=== PATIENT | female | born 1995 | race Caucasian/White ===

== ENCOUNTER 2024-02-05 18:30 | Emergency (ER) | payer OTHER, SELFPAY ==
[2024-02-05 18:35] VITALS: BP 112/78
[2024-02-05 18:53] LABS: Urine Albumin Negative (Neg - Trace); Urine Bilirubin Negative (Negative); Urine Character Slightly Cloudy (Clear); Urine Color Yellow; Urine Glucose Negative (Negative); Urine Ketone Negative (Negative); Urine Leukocyte Negative (Negative); Urine Nitrite Negative (Negative); Urine Occult Blood Negative (Negative); Urine Specific Gravity 1.025 (<1.030); Urine Urobilinogen Negative (Neg - 1+)
--- NOTE | 2024-02-05 19:42 | ED.GENMED ---
History of Present Illness
General
Chief Complaint: Back Pain
Time Seen by Provider: 02/05/24 19:19
History of Present Illness
History of Present Illness:
Patient is a 28-year-old woman with history of asthma, bipolar disorder, vasculitis currently 6 weeks presenting to the emergency department lower back pain. She states that it is right lower back that radiates down her leg. Sometimes
goes up her back as well. She states that she is having significant difficulty with any movement as the pain worsens. She does state that she was cleaning yesterday when the pain began. She does have history of this. She does state that 1 point
she was admitted for IV steroids. She does go to [facility] frequently for her care. Denies any history of epidural abscess or osteomyelitis. No IV drug use fevers chills numbness tingling or weakness. Denies any saddle anesthesia or urinary
incontinence or retention. She does follow-up with [facility]. No vaginal bleeding. No abdominal pain. No nausea or vomiting
Past History
Past History
ED Past Medical History: Asthma, Psychiatric (depression, anxiety, ODD, bipolar, OCD) and Other (Chronic headaches, vasculitis, Auto Immune disease, anemia)
ED Past Surgical History: Gynecological (, D&C)
Social History
Tobacco: Smoker
Alcohol: None
Drug: None and Marijuana
Personal: Single
Living: other (States she lives with 'someone.')
Employment: Employed
Family History
Family History: Other (Noncontributory)
Phy Exam
Physical Exam
Physical Exam:
GENERAL: in no acute distress
HEENT: normocephalic, extraocular movements intact, moist oral mucosa
NECK: normal inspection
Back: Right lower tenderness palpation over the SI joint
RESPIRATORY: no respiratory distress, clear to auscultation bilaterally
CARDIOVASCULAR: regular rate and rhythm
ABDOMEN/: soft, non-distended, non-tender to palpation, no rebound or guarding
EXTREMITIES: non-tender, no edema/swelling
NEUROLOGIC: awake and alert, moves all extremities, equal strength in upper and lower extremities, sensation intact
SKIN: warm
Course
Orders/Labs/Results
Orders:
Orders
02/05/24 18:45
Urinalysis Reflex To Culture Urgent
Date Specimen was Collected: 02/05/24
Time Specimen was Collected: 18:38
02/05/24 19:40
Acetaminophen [Tylenol] 1,000 mg PO NOW STA
Lidocaine [Lidocaine 4% Patch] 1 patch TOPICAL ONCE ONE
Apply Lidocaine patch(s) to:: loewr back
02/05/24 19:45
Test Result ONCE
02/05/24 19:46
Basic Metabolic Panel Urgent
Complete Blood Count/With Diff Urgent
HCG, Serum Qualitative Screen Urgent
Comment: ADD ON
02/05/24 20:17
Add On- LAB Urgent
Tests Added?: hcg qualitative
Abnormal Lab Results
02/05/24
19:46
RBC 4.10 L 10^6/uL
(4.20-5.40)
Hct 36.9 L %
(37.0-47.0)
MCH 32.0 H pg
(27.0-31.0)
MPV 11.1 H fL
(7.4-10.4)
Absolute Monos (auto) 0.8 H 10^3/uL
(0.1-0.6)
BUN 5 L mg/dl
(7-17)
Creatinine 0.5 L mg/dL
(0.6-1.0)
02/05/24 19:46
02/05/24 19:46
Vital Signs
Initial and Last Documented VS:
Initial Vital Signs
Temp Pulse Resp BP Pulse Ox
98 F 91 18 112/78 99
02/05/24 18:35 02/05/24 18:35 02/05/24 18:35 02/05/24 18:35 02/05/24 18:35
Last Documented Vital Signs
Temp Pulse Resp BP Pulse Ox
98 F 82 16 105/68 97
02/05/24 18:35 02/05/24 19:45 02/05/24 19:45 02/05/24 19:45 02/05/24 19:45
MDM/Problems Addressed
Differential Diagnosis Includes:
Patient is a 28-year-old woman with history of vasculitis, migraines, bipolar disorder, currently 6 weeks presenting to the emergency department right lower back pain that radiates down her leg intermittently. Vitals are unremarkable and
exam does show tenderness over the SI joint. Differential signs of mechanical low back pain versus radiculopathy. History and exam not consistent with cauda equina or cord compression or epidural abscess. It is reassuring and she does not have
any red flags. Given that she is we will give her Tylenol as well as a lidocaine patch. Will check basic blood work. Urine was negative for any signs of infection.
*Critical Care Note
Total Time (30-74mins, 75-104mins- exclusive of procedures): Not Applicable
Update Note
Update Note:
Blood work unremarkable. Will discharge patient at this time. Strict return precautions given.
ED Attending Note
-
Portions of this chart may have been created with voice recognition software.� Occasional wrong word or��sound alike� substitutions may have occurred due to the inherent limitations of voice recognition software.
Discharge Plan
Departure
Patient Disposition: Home (Routine Discharge)
Date of Disposition: 02/05/24
Time of Disposition: 20:54
Patient with high blood pressure during this ER visit?: No
Discharge Problem:
Back pain
Instructions: Low Back Pain (DC)
Prescriptions:
No Action
albuterol sulfate [Albuterol Sulfate HFA] 18 GM HFA aerosol inhaler
2 puff inhalation PRN PRN (Reason: sob/wheezing)
cannabidiol [Epidiolex] 1 UNIT solution
1 unit PO BID
Referrals:
NONE,* [Family Provider] -
Interventions
Interventions:
*Risk Screen - Suicide Last Done: 02/05/24 19:49
*General Assessment Last Done: 02/05/24 19:48
*Neglect/Abuse Screening Last Done: 02/05/24 19:49
ED- Fall Risk Assessment Last Done: 02/05/24 20:21
*ED COVID-19 Vaccine History Last Done: 02/05/24 19:48
ED-Musculoskeletal Assessment Last Done: 02/05/24 20:21
Discharge Date and Time
Print Language: ALGERIAN
[2024-02-05 19:45] VITALS: BP 105/68
[2024-02-05 19:53] LABS: % Basophils 0.7 % (0-2); % Eosinophils 2.8 % (0-6); % Immature Granulocytes 0.3 % (0-0.5); % Lymphocytes 28.5 % (20.5-51.1); % Neutrophils 59.7 % (42.2-75.2); Absolute Basophils 0.1 10^3/uL (0-0.2); Absolute Eosinophils 0.3 10^3/uL (0-0.7); Absolute Lymphocytes 2.7 10^3/uL (1.2-3.4); Absolute Monocytes 0.8 10^3/uL (0.1-0.6); Absolute Neutrophils 5.6 10^3/uL (1.4-6.5); Hematocrit 36.9 % (37.0-47.0); Hemoglobin 13.1 g/dL (12.0-16.0); Mean Corp Hgb Conc. 35.5 g/dL (33.0-37.0); Mean Platelet Volume 11.1 fL (7.4-10.4); Nucleated Red Blood Cells % 0 %; Platelet Count 159 10^3/uL (130-400); Red Cell Dist. Width 12.2 % (11.5-14.5); White Blood Cell Count 9.4 10^3/uL (4.8-10.8)
[2024-02-05 20:05] LABS: Blood Urea Nitrogen 5 mg/dl (7-17); Calcium 9.4 mg/dl (8.4-10.2); Carbon Dioxide 24 mmol/L (22-30); Chloride 105 mmol/L (98-107); Glucose 85 mg/dl (70-99); Potassium 3.8 mmol/L (3.5-5.1); Sodium 139 mmol/L (135-145); eGFR > 60.00
[2024-02-05] MEDS: LIDOCAINE 4% PATCH 1 PATCH TOPICAL (20:08)
[2024-02-05 20:36] LABS: HCG, Serum Qualitative Screen Positive
== END 2024-02-05 21:19 | disposition home or self-care (01) ==
LOC: EMR 18:30
PROVIDERS: EMERGENCY PHYSICIAN Student in an Organized Health Care Education/Training Program
DX: O26.891 Other specified pregnancy related conditions, first trimester (principal); Z3A.01 Less than 8 weeks gestation of pregnancy; M54.50 Low back pain, unspecified; M79.604 Pain in right leg; O99.891 Other specified diseases and conditions complicating pregnancy; O99.341 Other mental disorders complicating pregnancy, first trimester; F31.9 Bipolar disorder, unspecified; O99.511 Diseases of the respiratory system complicating pregnancy, first trimester; J45.909 Unspecified asthma, uncomplicated; F42.9 Obsessive-compulsive disorder, unspecified; O99.331 Smoking (tobacco) complicating pregnancy, first trimester; F17.200 Nicotine dependence, unspecified, uncomplicated; F32.A Depression, unspecified; F41.9 Anxiety disorder, unspecified; M35.9 Systemic involvement of connective tissue, unspecified; Z88.8 Allergy status to other drugs, medicaments and biological substances; Z91.040 Latex allergy status
CPT/HCPCS: 99283; 80048; 81003; 84703; 85025

== ENCOUNTER 2024-05-28 19:50 | Inpatient (IN) | payer OTHER, SELFPAY ==
[2024-05-28 14:34] VITALS: BP 97/69
[2024-05-28 16:22] VITALS: BP 97/68
[2024-05-28 16:23] LABS: INR 1.06; PT 14.1 Sec (11.4-14.6)
[2024-05-28 16:24] LABS: APTT 41.7 Sec (23.4-35.0)
[2024-05-28 16:26] LABS: Lactic Acid 0.8 mmol/L (0.7-2.0)
[2024-05-28 16:27] LABS: ALT (SGPT) 21 U/L (0-35); AST (SGOT) 42 U/L (14-36); Albumin 3.7 g/dl (3.5-5.0); Alkaline Phosphatase 59 U/L (38-126); Blood Urea Nitrogen 6 mg/dl (7-17); Calcium 8.2 mg/dl (8.4-10.2); Carbon Dioxide 25 mmol/L (22-30); Chloride 101 mmol/L (98-107); Glucose 108 mg/dl (70-99); Potassium 3.5 mmol/L (3.5-5.1); Sodium 133 mmol/L (135-145); Total Bilirubin 0.5 mg/dl (0.2-1.3); eGFR > 60.00
[2024-05-28 16:31] LABS: % Basophils 0.7 % (0-2); % Eosinophils 0.7 % (0-6); % Immature Granulocytes 0.4 % (0-0.5); % Lymphocytes 29.9 % (20.5-51.1); % Monocytes 8.8 % (1.7-9.3); % Neutrophils 59.5 % (42.2-75.2); Absolute Lymphocytes 0.8 10^3/uL (1.2-3.4); Absolute Monocytes 0.2 10^3/uL (0.1-0.6); Absolute Neutrophils 1.6 10^3/uL (1.4-6.5); Hematocrit 38.6 % (37.0-47.0); Hemoglobin 13.3 g/dL (12.0-16.0); Mean Corp Hgb Conc. 34.5 g/dL (33.0-37.0); Mean Corpuscular Hgb 30.4 pg (27.0-31.0); Mean Corpuscular Volume 88.3 fL (81.0-99.0); Nucleated Red Blood Cells % 0 %; Red Blood Cell Count 4.37 10^6/uL (4.20-5.40); Red Cell Dist. Width 13.7 % (11.5-14.5); White Blood Cell Count 2.7 10^3/uL (4.8-10.8)
[2024-05-28 17:13] LABS: Platelet Count 80 10^3/uL (130-400)
[2024-05-28 17:14] LABS: Mean Platelet Volume 11.3 fL (7.4-10.4)
[2024-05-28 17:57] VITALS: BP 91/69
--- NOTE | 2024-05-28 18:01 | ED.GENMED ---
History of Present Illness
<Christy Jade MD - Last Filed: 05/29/24 14:07>
General
Chief Complaint: Fever
Time Seen by Provider: 05/28/24 16:07
<Claudia Pickard NP - Last Filed: 05/29/24 23:37>
General
Source: patient
Exam Limitations: none
Nursing documentation reviewed up to this point in time: agreed with
History of Present Illness
History of Present Illness:
Patient to ED with complaint of fever, skin rash, bodyaches. SHe developed fever, SOB, sorethroat on . SHe reports both of her children had URI symptoms earlier in the week and she felt she was starting with the same illness. She noticed a
rash under left breast yesterday. Today rash spread to remainder of trunk and bilateral lower extremities. Bilateral kness are red, no swelling. Rash is occassionally itchy. SHe went to today for evaluation.Labs identified low WBC and
platelets. SHe was adivsed to come to ED for further eval. Known history of thalassemia. Brought self to ED for eval.
Past History
<Christy Jade MD - Last Filed: 05/29/24 14:07>
Past History
ED Past Medical History: Asthma, Psychiatric (depression, anxiety, ODD, bipolar, OCD) and Other (Chronic headaches, vasculitis, Auto Immune disease, anemia)
ED Past Surgical History: Gynecological (, D&C)
Social History
Tobacco: Smoker
Alcohol: None
Drug: None and Marijuana
Personal: Single
Living: other (States she lives with 'someone.')
Employment: Employed
Family History
Family History: Other (Noncontributory)
Review of Systems
<Claudia Pickard NP - Last Filed: 05/29/24 23:37>
Review of Systems
Allergies reviewed?: Yes
All Other Systems: ROS reviewed and negative except as documented in HPI and ROS
Constitutional: Reports fever and fatigue
EENT: Reports no symptoms
Respiratory: Reports no symptoms
Cardiac: Reports no symptoms
ABD/GI: Reports no symptoms
: Reports no symptoms
Musculoskeletal: Reports joint pain (generalized)
Skin: Reports rash (Petechial rash BLE)
Neurological: Reports weakness
Psychiatric: Reports no symptoms
Phy Exam
<Claudia Pickard NP - Last Filed: 05/29/24 23:37>
General Physical Exam
General Presentation: well appearing and no apparent distress
General age: appears stated age
General Skin: warm and dry
General Habitus: normal
General Mental: alert
General Hydration: appears well hydrated
ENT Exam
ENT Exam: EOMI, TM's normal, pharynx normal, neck supple, normocephalic and swallowing well
Cardiovascular Exam
Cardiovascular Exam: regular rate/rhythm and no edema
Pulmonary Exam
Pulmonary Exam: lungs clear and no respiratory distress
Gastrointestinal Exam
Gastrointestinal Exam: normal bowel sounds, non tender and soft
Musculoskeletal Exam
Musculoskeletal Exam: full ROM, no edema and neuro vasc intact
Skin Exam
Skin Exam: normal color, warm/dry and other (Petechial rash to BLE. Viral appearing exanthem noted on trunck)
Psychiatric Exam
Psychiatric Exam: normal mood/affect
Course
<Christy Jade MD - Last Filed: 05/29/24 14:07>
Orders/Labs/Results
Orders:
Orders
05/28/24 Dinner
Regular
At Your Request: Full Participation
05/28/24 15:54
CR Chest - 2 Views Urgent
Comment:
Reason For Exam: fever
05/28/24 15:56
Type+Screen Urgent
Complete Blood Count/With Diff Urgent
Comprehensive Metabolic Panel Urgent
Lactic Acid Urgent
PTT Urgent
Prothrombin Time Urgent
Blood Culture Urgent
AYSE Source: Blood/Venous
Specimen Description:
05/28/24 18:20
CefTRIAXone [Rocephin] 1,000 mg IV NOW STA
Doxycycline [Vibramycin] 100 mg PO NOW STA
05/28/24 18:54
Isaura-Houser Virus Ab Panel I [S] Urgent
Lyme Progressive Urgent
[facility] Spotted Fever IgG&IgM [S] Urgent
Babesia Smear [Blood Parasites] Urgent
AYSE Source: Blood/Venous
Specimen Description:
Blood Culture Urgent
AYSE Source: Blood/Venous
Specimen Description:
05/28/24 19:12
Admit/Transfer Patient As Directed
Co-Sign Provider:
Level of Care: Inpatient admission
Assign to:: Medical/Surgical
Physician / Group: enedelia
Diagnosis: tickborne illness vs autoimmmune vasculitis
Reason for Hospitalization: tickborne illness vs autoimmmune vasculitis
Expected length of stay greater than two midnights?: Yes
ELOS- Estimated Length of Stay in days: 2
I certify the patient meets the requirements for IP care: Yes
PRN Pain Medication Management As Directed
May give lesser potent ordered pain med per pt: Yes
preference::
Protocol:: Medication orders for pain may be administered in a
manner that supports deferring to patient preference
when the pt is:
- Requesting an ordered lesser potent pain medication.
Least to most potent pain medications are defined
as: acetaminophen < NSAID < tramadol < opioids
(morphine, oxycodone, hydromorphone).
- Requesting a lesser dose of the same medication IF
ORDERED.
- Requesting a less intrusive route of administration
if both routes are prescribed by the provider (PO <
IV).
05/28/24 19:13
Code Status As Directed
Resuscitation Status: Full Code
05/28/24 19:15
Diphenhydramine [Benadryl] 25 mg IV Q4HPRN PRN
Ketorolac [Toradol] 15 mg IV Q6HPRN PRN
05/28/24 20:52
0.9% Sodium Chloride 1000 ml [Nss] 1,000 ml IV 100 mls/hr
Acetaminophen [Tylenol] 650 mg PO Q4HPRN PRN
05/28/24 20:52
INFECTIOUS DISEASE CONSULT Routine
Consulting Provider: Karissa Youngblood
Was physician already notified: Yes
Activity As Directed
Activity Level: As Tolerated
Pneumatic Compression Sleeves As Directed
Type: Knee high
Vital Signs As Directed
Frequency: Per unit guidelines
DX Deep Vein Thrombosis Video Routine
05/29/24 05:34
Complete Blood Count/With Diff IN AM
Comprehensive Metabolic Panel IN AM
05/29/24 18:00
CefTRIAXone [Rocephin] 1,000 mg IV Q24H
Abnormal Lab Results
05/28/24
15:56
WBC 2.7 L 10^3/uL
(4.8-10.8)
Plt Count 80 L 10^3/uL
(130-400)
MPV 11.3 H fL
(7.4-10.4)
Absolute Lymphs (auto) 0.8 L 10^3/uL
(1.2-3.4)
APTT 41.7 H Sec
(23.4-35.0)
Sodium 133 L mmol/L
(135-145)
BUN 6 L mg/dl
(7-17)
Creatinine 0.5 L mg/dL
(0.6-1.0)
Glucose 108 H mg/dl
(70-99)
Calcium 8.2 L mg/dl
(8.4-10.2)
AST 42 H U/L
(14-36)
Total Protein 6.0 L g/dl
(6.3-8.2)
Antibody Screen Positive A
(Negative)
05/28/24 15:56
05/28/24 15:56
Vital Signs
Initial and Last Documented VS:
Initial Vital Signs
Temp Pulse Resp BP Pulse Ox
99.8 F 91 18 97/69 95
05/28/24 14:34 05/28/24 14:34 05/28/24 14:34 05/28/24 14:34 05/28/24 14:34
Last Documented Vital Signs
Temp Pulse Resp BP Pulse Ox
98.3 F 60 16 99/64 98
05/29/24 15:11 05/29/24 15:11 05/29/24 15:11 05/29/24 15:11 05/29/24 15:11
<Claudia Pickard, MACHINE [employer] - Last Filed: 05/29/24 23:37>
Orders/Labs/Results
Orders:
Orders
05/28/24 Dinner
Regular
At Your Request: Full Participation
05/28/24 15:54
CR Chest - 2 Views Urgent
Comment:
Reason For Exam: fever
05/28/24 15:56
Type+Screen Urgent
Complete Blood Count/With Diff Urgent
Comprehensive Metabolic Panel Urgent
Lactic Acid Urgent
PTT Urgent
Prothrombin Time Urgent
Blood Culture Urgent
AYSE Source: Blood/Venous
Specimen Description:
05/28/24 18:20
CefTRIAXone [Rocephin] 1,000 mg IV NOW STA
Doxycycline [Vibramycin] 100 mg PO NOW STA
05/28/24 18:54
Isaura-Houser Virus Ab Panel I [S] Urgent
Lyme Progressive Urgent
[place] Spotted Fever IgG&IgM [S] Urgent
Babesia Smear [Blood Parasites] Urgent
AYSE Source: Blood/Venous
Specimen Description:
Blood Culture Urgent
AYSE Source: Blood/Venous
Specimen Description:
05/28/24 19:12
Admit/Transfer Patient As Directed
Co-Sign Provider:
Level of Care: Inpatient admission
Assign to:: Medical/Surgical
Physician / Group: enedelia
Diagnosis: tickborne illness vs autoimmmune vasculitis
Reason for Hospitalization: tickborne illness vs autoimmmune vasculitis
Expected length of stay greater than two midnights?: Yes
ELOS- Estimated Length of Stay in days: 2
I certify the patient meets the requirements for IP care: Yes
PRN Pain Medication Management As Directed
May give lesser potent ordered pain med per pt: Yes
preference::
Protocol:: Medication orders for pain may be administered in a
manner that supports deferring to patient preference
when the pt is:
- Requesting an ordered lesser potent pain medication.
Least to most potent pain medications are defined
as: acetaminophen < NSAID < tramadol < opioids
(morphine, oxycodone, hydromorphone).
- Requesting a lesser dose of the same medication IF
ORDERED.
- Requesting a less intrusive route of administration
if both routes are prescribed by the provider (PO <
IV).
05/28/24 19:13
Code Status As Directed
Resuscitation Status: Full Code
05/28/24 19:15
Diphenhydramine [Benadryl] 25 mg IV Q4HPRN PRN
Ketorolac [Toradol] 15 mg IV Q6HPRN PRN
05/28/24 20:52
0.9% Sodium Chloride 1000 ml [Nss] 1,000 ml IV 100 mls/hr
Acetaminophen [Tylenol] 650 mg PO Q4HPRN PRN
05/28/24 20:52
INFECTIOUS DISEASE CONSULT Routine
Consulting Provider: Karissa Youngblood
Was physician already notified: Yes
Activity As Directed
Activity Level: As Tolerated
Pneumatic Compression Sleeves As Directed
Type: Knee high
Vital Signs As Directed
Frequency: Per unit guidelines
DX Deep Vein Thrombosis Video Routine
05/29/24 05:34
Complete Blood Count/With Diff IN AM
Comprehensive Metabolic Panel IN AM
05/29/24 18:00
CefTRIAXone [Rocephin] 1,000 mg IV Q24H
Abnormal Lab Results
05/28/24
15:56
WBC 2.7 L 10^3/uL
(4.8-10.8)
Plt Count 80 L 10^3/uL
(130-400)
MPV 11.3 H fL
(7.4-10.4)
Absolute Lymphs (auto) 0.8 L 10^3/uL
(1.2-3.4)
APTT 41.7 H Sec
(23.4-35.0)
Sodium 133 L mmol/L
(135-145)
BUN 6 L mg/dl
(7-17)
Creatinine 0.5 L mg/dL
(0.6-1.0)
Glucose 108 H mg/dl
(70-99)
Calcium 8.2 L mg/dl
(8.4-10.2)
AST 42 H U/L
(14-36)
Total Protein 6.0 L g/dl
(6.3-8.2)
Antibody Screen Positive A
(Negative)
05/28/24 15:56
05/28/24 15:56
Vital Signs
Initial and Last Documented VS:
Initial Vital Signs
Temp Pulse Resp BP Pulse Ox
99.8 F 91 18 97/69 95
05/28/24 14:34 05/28/24 14:34 05/28/24 14:34 05/28/24 14:34 05/28/24 14:34
Last Documented Vital Signs
Temp Pulse Resp BP Pulse Ox
98.3 F 60 16 99/64 98
05/29/24 15:11 05/29/24 15:11 05/29/24 15:11 05/29/24 15:11 05/29/24 15:11
<Claudia Pickard NP - Last Filed: 05/29/24 23:37>
*Critical Care Note
Total Time (30-74mins, 75-104mins- exclusive of procedures): Not Applicable
ED Attending Note
<Christy Jade MD - Last Filed: 05/29/24 14:07>
ED Attending Note
Patient seen and examined by attending physician: Yes
I performed the substantive portion of visit, reviewed & personally made and approve the management plan that is documented in note by myself or ALBIN.: Yes
ED Attending Note:
28 yr old female, hx of vasculitis (?specific), thalasemia trait, presents with fatigue, malaise, fever for 2-3 days now with rash...rash looks petechiael on le, and maculopapular on torso. No purpura, vesicles, etc. She is newly thrombocytopenic
and neutropenic here. Overall, nontoxic. No meningismus. No hx tick bites. Awake alert heart regular rate and rhythm, lungs CTA, abdomen soft and nontender. I'm wondering re:?possibility of viral cause, ex EBV, ?tick borne etc etc
-
Portions of this chart may have been created with voice recognition software.� Occasional wrong word or��sound alike� substitutions may have occurred due to the inherent limitations of voice recognition software.
Discharge Plan
Departure
Patient Disposition: Admit
Date of Disposition: 05/28/24
Time of Disposition: 18:30
Presentation/result/management discussed w/ accepting MD/DO: Hospitalist
Patient with high blood pressure during this ER visit?: No
Condition: Fair
Covid-19: Not Applicable
Discharge Problem:
Thrombocytopenia, Neutropenia
Interventions
Interventions:
*Risk Screen - Suicide Last Done: 05/28/24 14:34
*General Assessment Last Done: 05/28/24 14:34
*Neglect/Abuse Screening Last Done: 05/28/24 14:34
ED- Fall Risk Assessment Last Done: 05/28/24 14:45
*ED COVID-19 Vaccine History Last Done: 05/28/24 14:34
*Nursing Disposition Last Done: 05/28/24 21:03
Discharge Date and Time
Discharge Date/Time: 05/28/24 21:04
[2024-05-28] MEDS: ROCEPHIN 1000 MG IV (19:02)
--- NOTE | 2024-05-28 19:17 | HPS.HSE ---
Family Physician
-
Family Physician: * NONE
Chief Complaint
-
rash
History of Present Illness
28-year-old female past medical history of asthma, chronic dysphagia/asphyxia, anxiety/depression, borderline personality disorder, autoimmune vasculitis, thalassemia, gastroparesis, vasovagal syncopal episodes, presenting with fever, skin rash and
bodyaches and shortness of breath and sore throat.
She first developed cough, shortness of breath and sore throat 5 days ago. Both of her children had URI symptoms earlier in the week and she felt like she was having the same symptoms.
She denies any outdoor exposure or travel recently.
Yesterday she developed a rash which started on her left breast and spread to her trunk and bilateral lower extremities and back. She has itching and discomfort. Also developed fever, headache. She feels slow mentally and having pain everywhere.
She went to urgent care and was found to have low platelets and white cell count and referred to the emergency room.
She states that the rash does not resemble her usual autoimmune vasculitis rash. She was originally diagnosed with autoimmune vasculitis when she was 9 years old treated with antibiotics and steroids. She has occasional flareups which respond to
steroids. She follows with [facility] in [place] [facility].
Her upper respiratory symptoms have not improved despite 5 days
She uses medical marijuana. She smokes socially. Denies alcohol.
She states that she cannot swallow well normally baseline.
She is having menstrual bleeding at this time.
Medical History
Past Medical History
Past Medical History: Reports Other (asthma, chronic dysphagia/asphyxia, anxiety/depression, borderline personality disorder, autoimmune vasculitis, thalassemia, gastroparesis, vasovagal syncopal episodes)
Past Surgical History: Reports Other (D&E)
Social History
Tobacco: Smoker
Alcohol: None
Drug: Marijuana
Family History
Family History: Not pertinent
Allergies / Home Medications
Allergies reflects when Allergies were last updated in [facility].
Home Medications with original date entered in [facility]
Allergy/Medication List:
Allergies
Allergy/AdvReac Type Severity Reaction Status Date / Time
latex Allergy Unknown Rash Verified 10/24/21 13:04
amitriptyline Allergy Anaphylaxis Verified 05/28/24 14:43
nifedipine [From Procardia] Allergy Anaphylaxis Verified 05/28/24 14:43
medication to stop Allergy Shortness Uncoded 10/24/21 13:04
contractions of Breath
Home Medications
Medical Marijuana 2 puff inhalation DAILYPRN PRN anixety/stress 05/28/24
diazepam 2 mg tablet (Valium) 2 mg PO BIDPRN PRN problem eating 05/28/24
folic acid 1 mg tablet 1 mg PO DAILY 05/28/24
Review of Systems
-
History Source: Patient
A 12 point ROS was completed and negative except as noted: Yes
Constitutional: Reports No Symptoms
EENT: Reports No Symptoms
Respiratory: Reports No Symptoms
Cardiac: Reports No Symptoms
Abdomen/GI: Reports No Symptoms
: Reports No Symptoms
Musculoskeletal: Reports No Symptoms
Skin: Reports See HPI
Neurological: Reports No Symptoms
Endocrine: Reports No Symptoms
Hematologic/Lymphatic: Reports No Symptoms
Psych: Reports No Symptoms
Physical Exam
Vital Signs
Vital Signs
Temp Pulse Resp BP Pulse Ox
100.9 F H 87 20 91/69 96
05/28/24 16:22 05/28/24 17:57 05/28/24 17:57 05/28/24 17:57 05/28/24 17:57
Physical Exam
General: Well Developed, Well Nourished and No Apparent Distress
HEENT: NormoCephalic, Moist mucous membranes and Atraumatic
Respiratory: Clear
Cardiac: S1/S2 and Regular Rhythm; No Murmur or Rub
GI: Soft, Non Tender, Non Distended and Normal Bowel Sounds; No Organomegaly
Rectal: Deferred by Provider
Musculoskeletal: No Clubbing, No Cyanosis and No Edema
Skin: Other (maculopapular rash trunk and ); No Rash
Neuro: Nonfocal/grossly intact
Laboratory Results
-
05/28/24 15:56
05/28/24 15:56
Laboratory Results
PT 14.1 Sec (11.4-14.6) 05/28/24 15:56
INR 1.06 05/28/24 15:56
APTT 41.7 Sec (23.4-35.0) H 05/28/24 15:56
Lactic Acid 0.8 mmol/L (0.7-2.0) 05/28/24 15:56
Total Bilirubin 0.5 mg/dl (0.2-1.3) 05/28/24 15:56
AST 42 U/L (14-36) H 05/28/24 15:56
ALT 21 U/L (0-35) 05/28/24 15:56
Alkaline Phosphatase 59 U/L (38-126) 05/28/24 15:56
Data Reviewed
-
Lab Data: Labs Reviewed by me
Old Records: Reviewed
Impression/Plan
-
IMPRESSION:
PLAN:
# Fever/leukopenia/thrombocytopenia/maculopapular rash unclear etiology possibly tickborne illness versus autoimmune vasculitis rash
-Chest x-ray unremarkable
-Check blood cultures
-Lyme, EBV, Rickettsia serologies, Babesia smear, [place] spotted fever serologies pending although not the season for tickborne illnesses
-ID recommended ceftriaxone/doxycycline
-May require steroids after infectious etiology is ruled out but hold off for now
-IV fluids
-Toradol, Benadryl for symptoms
-Consider oncology to consider bone marrow process if worsening leukopenia/thrombocytopenia
# URI
-Chest x-ray unremarkable
History of autoimmune vasculitis
Asthma
Anxiety/depression/borderline personality disorder
-Continue Valium
History of thalassemia/iron deficiency anemia
Medical marijuana user
History of chronic dysphagia/occasional asphyxia
Chronic gastroparesis
History of vasovagal syncopal episodes
Full code
DVT prophylaxis�SCDs
Regular diet
[2024-05-28] MEDS: BENADRYL 25 MG IV (20:02)
[2024-05-28] MEDS: TORADOL 15 MG IV (20:02)
[2024-05-28 20:40] VITALS: BP 105/76
[2024-05-28 21:04] VITALS: BP 100/60; BMI 18.6
[2024-05-28] MEDS: NSS 1000 IV (22:09)
[2024-05-28 23:55] VITALS: BP 108/65
[2024-05-29] MEDS: VIBRAMYCIN 260 MG IV ×2 (00:14→09:03)
--- NOTE | 2024-05-29 01:25 | PTCARENOTE ---
Pt admitted to [facility] from ED via stretcher. Pt AAOx3. R AC IV C/D/I, started on NSS at 100 mL/hr. Pt oriented to room. Call abreu within reach and bed in lowest position.
[2024-05-29] MEDS: TORADOL 15 MG IV ×4 (04:19→23:49)
[2024-05-29] MEDS: BENADRYL 25 MG IV ×4 (04:19→23:51)
[2024-05-29 06:43] LABS: Hematocrit 35.7 % (37.0-47.0); Mean Corp Hgb Conc. 33.6 g/dL (33.0-37.0); Mean Corpuscular Hgb 30.4 pg (27.0-31.0); Mean Corpuscular Volume 90.4 fL (81.0-99.0); Platelet Count 68 10^3/uL (130-400); Red Blood Cell Count 3.95 10^6/uL (4.20-5.40); Red Cell Dist. Width 13.8 % (11.5-14.5); White Blood Cell Count 2.1 10^3/uL (4.8-10.8)
[2024-05-29 06:47] LABS: ALT (SGPT) 19 U/L (0-35); AST (SGOT) 38 U/L (14-36); Albumin 2.8 g/dl (3.5-5.0); Alkaline Phosphatase 44 U/L (38-126); Blood Urea Nitrogen 4 mg/dl (7-17); Carbon Dioxide 28 mmol/L (22-30); Chloride 104 mmol/L (98-107); Estimated Creatinine Clearance 107 ml/min; Glucose 100 mg/dl (70-99); Potassium 3.6 mmol/L (3.5-5.1); Sodium 135 mmol/L (135-145); Total Bilirubin 0.2 mg/dl (0.2-1.3); Total Protein 5.1 g/dl (6.3-8.2); eGFR > 60.00
[2024-05-29 07:12] VITALS: BP 88/55
[2024-05-29 07:51] LABS: % Basophils 0.5 % (0-2); % Eosinophils 4.2 % (0-6); % Immature Granulocytes 0.5 % (0-0.5); % Lymphocytes 65.7 % (20.5-51.1); % Monocytes 8.9 % (1.7-9.3); % Neutrophils 20.2 % (42.2-75.2); Absolute Eosinophils 0.1 10^3/uL (0-0.7); Absolute Lymphocytes 1.4 10^3/uL (1.2-3.4); Absolute Monocytes 0.2 10^3/uL (0.1-0.6); Absolute Neutrophils 0.4 10^3/uL (1.4-6.5); Nucleated Red Blood Cells % 0 %
[2024-05-29] MEDS: NSS IV ×2 (09:03→15:23)
--- NOTE | 2024-05-29 12:34 | W.PN.UPDATE ---
Update Note
Progress Note Update
Brief consult note
28 yo with hx iron def anemia, thalassemia followed by Dr. Caleb Monteiro at [facility]. Also with hx autoimmune vasulitis. No hx cytopenias.
Presents with fever and rash. Four young children at home, and whole family recently sick but without rash.
Noted to be neutropenic and thrombocytopenic.
Rash is diffuse: abd, back, knees, arms. It has been fading since yesterday. States not like her usual vascular rash characterized but scattered, isolated skin lesions whereas this is a confluent faint lacy erythematous rash.
Last fever 100.9 at 4:22 pm yesterday.
Suspect viral exanthem vs. tick-borne.
Cytopenias viral vs. possibly autoimmune.
Would not d/c home yet with ANC <500 and fever yesterday.
Check sed complement levels.
Full consult to follow.
--- NOTE | 2024-05-29 12:47 | W.PN.HOSP.TC ---
Today's Communication/Plan
-
await further infectious work up
trend cbc
neutropenic precautions
ID eval
Assessment / Plan
Assessment / Plan
# Fever and rash likely 2/2 viral exanthem vs. low likelihood of ticborne illness. Doubt due to vasculitis
# Leukopenia/thrombocytopenia likely 2/2 infection likely viral
-Chest x-ray unremarkable
-Check blood cultures in lab
-Blood parasite preliminary negative
-Urine culture with contamination.
-Lyme, EBV, Rickettsia serologies, Babesia smear, [place] spotted fever serologies pending
-IV fluids
-Toradol, Benadryl for symptoms
-ID eval
#Severe neutropenia/thrombocytopenia
-No prior history of neutropenia thrombocytopenia.
-Recent fevers at home. Sick contacts at home
-Complement factors pending. Platelet antibodies pending
-Plt at 68k.
-neutropenic precautions
-Appreciate hematology recs
# History of autoimmune vasculitis diagnosed during childhood
-Has not follow-up with rheumatology at [place] and 1 to 2 years
-Not on any maintenance regimen
# URI
-Chest x-ray unremarkable
Asthma
Anxiety/depression/borderline personality disorder
-Continue Valium
History of thalassemia/iron deficiency anemia
Medical marijuana user
History of chronic dysphagia/occasional asphyxia
Chronic gastroparesis
History of vasovagal syncopal episodes
Full code
DVT prophylaxis�SCDs in setting of severe thrombcoytopenia
Anticipated Discharge: > 48 hours
Subjective/Interval History
-
Date of Service: May 29, 2024
states the rash has improved significantly from yesterday
Yesterday it was red blotchy on her back, abdomen and knee
pruritus has improved
4 children at home -with URI symptoms.
Has not followed up with Rheum in couple of years
Objective Data
-
Labs:
Laboratory Results
05/29/24
05:34
WBC 2.1 L*
Hgb 12.0
Hct 35.7 L
Plt Count 68 L
Sodium 135
Potassium 3.6
Chloride 104
Carbon Dioxide 28
BUN 4 L
Creatinine 0.5 L
Glucose 100 H
Calcium 8.0 L
Total Bilirubin 0.2
AST 38 H
ALT 19
Alkaline Phosphatase 44
Vital Signs:
Vital Signs
Temp Pulse Resp BP Pulse Ox
98.3 F 73 17 88/55 98
05/29/24 07:12 05/29/24 07:12 05/29/24 07:12 05/29/24 07:12 05/29/24 07:12
I&O
05/28/24 05/29/24 05/30/24
06:59 06:59 06:59
Intake Total 1859
Balance 1859
Physical Exam
-
General: Well Developed and No Apparent Distress
HEENT: Normocephalic, Atraumatic, Moist Mucous Membranes and Other (poor dentition)
Respiratory: Clear to Auscultation
Cardiac: Regular Rhythm and S1/S2; Negative Murmur, Rub or Gallop
GI: Soft, Nontender, Nondistended and Normal Bowel Sounds; Negative Organomegaly
Rectal: Deferred by Provider
Musculoskeletal: No Clubbing, No Cyanosis and No Edema
Skin: Rash (reticulated on back, extremitiies, abdomen )
Neuro: Awake, Alert, Oriented, AO x 3, No Motor Deficits and Nonfocal/Grossly Intact
Psych: Calm
[2024-05-29 13:18] LABS: Lyme Antibody Screen, EIA Negative (Negative)
[2024-05-29 13:35] LABS: Complement C3 83 mg/dl (88-165)
[2024-05-29 15:11] VITALS: BP 99/64
--- NOTE | 2024-05-29 15:11 | CM ---
system safety manager reviewed patient's chart and met with patient and patient reports that she lives with her spouse and 4 children in a 2 story home, patient is independent with adl's and ambulation, no dme, patient drives, plan is to home with family
when stable, no needs.
Pharmacy: [facility].
Plan; Home no needs.
--- NOTE | 2024-05-29 15:21 | CON.ID ---
Consultation
-
Date/Time Consultation Requested: 05/28/20242051
Date/Time Consultation Performed: 05/29/2024 1421
Requesting Provider: Dr. Flores
Performing Provider: Dr. Gan
Reason for Consultation: Fever
Chief Complaint / Past History
History of Present Illness
Giovanna Manley is a 28-year-old female being evaluated at the request of Dr. Flores regarding fevers and leukopenia. History is obtained from chart review, along with patient interview.
Patient reports that her son and daughter became sick sometime last week with symptoms of cough, runny nose and fever, but no history of rash. Approximately 2 days later (4 days ago) the patient developed a sore throat, fever to 102 degrees and
generalized malaise. She recalls that she was sleeping a lot, had decreased appetite, some slight nausea and profound body aches. Approximately day later she began to notice a rash on her body beginning on her upper chest, and progressing
downward. The rash has progressed since then, but is noted to be improved today. The patient notes that she also has a 'vasculitis rash' that she follows with [facility] with.
She denies any recent travel, and has not had any visitors from outside of the general area.
She does have a dog.
She reports that both herself and all her children have received the appropriate vaccinations.
Past History
Additional Past Medical History:
Gastroparesis
Vasculitis
Fatty liver
Anemia
Additional Past Surgical History:
D&E
D&C
Allergy History:
latex Allergy (Unknown, Verified 10/24/21 13:04)
Rash
amitriptyline Allergy (Verified 05/28/24 14:43)
Anaphylaxis
nifedipine [From Procardia] Allergy (Verified 05/28/24 14:43)
Anaphylaxis
medication to stop contractions Allergy (Uncoded 10/24/21 13:04)
Shortness of Breath
Current Antibiotics:
Ceftriaxone 1 g IV every 24 hours
Doxycycline 100 mg IV every 12 hours
Social History
Tobacco: Smoker
Alcohol: None
Drug: Marijuana
Personal: Single
Living: With Family
Employment: Not Employed
Family History
Family History: Not Pertinent
Review of Systems
Vital Signs
Temp Pulse Resp BP Pulse Ox
98.3 F 60 16 99/64 98
05/29/24 15:11 05/29/24 15:11 05/29/24 15:11 05/29/24 15:11 05/29/24 15:11
Physical Exam
Physical Exam
Constitutional: No Acute Distress, Comfortable and Non-toxic
Head: Normocephalic
Eyes: Pupils Equal, Pupils Round and No Conjunctival Hemorrhage
Oral: No Thrush and No Ulcers
Cardiovascular: Regular Rate and S1/S2; Negative S3/S4 or Murmur
Pulmonary: Clear; Negative Wheezes or Rales
Gastrointestinal: Soft, Non Tender and Non Distended
Skin: Rash (Macular rash over extensive portion of her body, but difficult to differentiate from underlying freckles.)
Neurological: Awake, Alert and Oriented
Psychological: Calm
Lab / Diagnostic Study Results
05/29/24 05:34
05/29/24 05:34
Abs Immat Gran (auto) 0.0 10^3/uL (0-0.05) 05/29/24 05:34
Absolute Neuts (auto) 0.4 10^3/uL (1.4-6.5) L* 05/29/24 05:34
Absolute Lymphs (auto) 1.4 10^3/uL (1.2-3.4) 05/29/24 05:34
Absolute Monos (auto) 0.2 10^3/uL (0.1-0.6) 05/29/24 05:34
Absolute Basos (auto) 0.0 10^3/uL (0-0.2) 05/29/24 05:34
Immature Gran % 0.5 % (0-0.5) 05/29/24 05:34
Neutrophils % 20.2 % (42.2-75.2) L 05/29/24 05:34
Lymphocytes % 65.7 % (20.5-51.1) H 05/29/24 05:34
Monocytes % 8.9 % (1.7-9.3) 05/29/24 05:34
Eosinophils % 4.2 % (0-6) 05/29/24 05:34
Basophils % 0.5 % (0-2) 05/29/24 05:34
PT 14.1 Sec (11.4-14.6) 05/28/24 15:56
INR 1.06 05/28/24 15:56
Lactic Acid 0.8 mmol/L (0.7-2.0) 05/28/24 15:56
Microbiology Results
Micro:
05/28/24 18:54 Blood Parasites Smear - Final
Blood/Venous
05/28/24 18:54 Blood Culture - Pending
Blood/Venous
05/28/24 15:56 Blood Culture - Pending
Blood/Venous
Assessment / Plan
Fever
Rash
Leukopenia
-Suspect viral related
Gastroparesis
Vasculitis
Fatty liver
Recommendations:
Discontinue further ceftriaxone
Continue doxycycline, but can be transitioned to the oral route.
Check viral respiratory panel.
Check HIV antibody. Patient has given verbal consent.
Follow white count to assess resolution of neutropenia.
Monitor temperature curve.
Await pending test.
Further recommendations as additional data is returned.
--- NOTE | 2024-05-29 20:00 | CON.ONC ---
Impression
Impression
Viral exanthem versus tickborne illness
History of autoimmune vasculitis
History of iron deficiency anemia
Reported history of thalassemia
Plan
Plan
Suspect viral cytopenias.
Autoimmune cytopenias also a possibility, monitor.
Doubt underlying bone marrow disorder, hemoglobin well-preserved.
Consider ultrasound spleen if cytopenias fail to improve.
Patient will return to the care of Dr. Monteiro at [place] upon discharge.
Thank you for consult. We will follow along with you.
Patient History
History of Present Illness
28-year-old woman with history of asthma, gastroparesis, autoimmune vasculitis, iron deficiency anemia, and thalassemia followed by Dr. Caleb Monteiro at [place]. Patient presents with fever and rash in the setting of sick family members including 4
young children. Noted to be neutropenic and thrombocytopenic. Her blood counts are followed closely by her other physicians and she states she has never had cytopenias in the past. She is feeling somewhat better with antibiotics. Regarding the
rash, it involves her abdomen, back, knees and arms. She states it is not like her usual vasculitis rash. Last fever was 4:30 PM last evening.
Past-Medical/Surgical History
Past Medical History
Asthma, chronic dysphagia/asphyxia, anxiety/depression, borderline personality disorder, autoimmune vasculitis, thalassemia, gastroparesis, vasovagal syncopal episodes
Past Surgical History
D&E
Social History
Tobacco: Smoker
Alcohol: None
Drug: Medical cannabis
Family History
Family History: Not pertinent
Allergies / Home Medications
Patient Medication
�Medication �Instructions �Recorded �Confirmed �Last Taken �Type
Medical Marijuana 2 puff inhalation DAILYPRN PRN 05/28/24 05/28/24 Unknown History
anixety/stress
diazepam 2 mg tablet (Valium) 2 mg PO BIDPRN PRN problem eating 05/28/24 05/28/24 Unknown History
folic acid 1 mg tablet 1 mg PO DAILY Supplement 05/28/24 05/28/24 Unknown History
Active Medications
Generic Name Dose Route Start Last Admin
Trade Name Freq PRN Reason Stop Dose Admin
Acetaminophen 650 mg 05/28/24 20:52
Acetaminophen 325 Mg Tablet PO 06/25/24 20:51
Q4HPRN PRN
mild pain/AGRCIAS/temp> 100.4F
Diphenhydramine HCl 25 mg 05/28/24 19:15 05/29/24 18:22
Diphenhydramine 50 Mg/Ml 1 Ml Vial IV 06/25/24 19:14 25 mg
Q4HPRN PRN Administration
rash
Doxycycline Hyclate 100 mg 05/29/24 20:00
Doxycycline 100 Mg Capsule PO
BID SHARAD
Sodium Chloride 1,000 mls @ 100 mls/hr 05/28/24 20:52 05/29/24 15:23
Nss IV Not Given
.Q10H SHARAD
Ketorolac Tromethamine 15 mg 05/28/24 19:15 05/29/24 18:22
Ketorolac 15 Mg/Ml Injection IV 06/02/24 19:14 15 mg
Q6HPRN PRN Administration
mod sev pain
Sodium Chloride 0 flush 05/28/24 22:00
Sodium Chloride 0.9% (Flush) Syringe IV 06/25/24 21:59
PER PROTOCOL SHARAD
Review of Systems
-
History Source: Patient
All Other Systems: Reviewed and Negative
Constitutional: Reports Fever and No Appetite
EENT: Reports Sore Throat
Respiratory: Reports No Symptoms
Cardiac: Reports No Symptoms
GI: Reports Nausea
Breast: Reports No Symptoms
: Reports No Symptoms
Musculoskeletal: Reports No Symptoms
Skin: Reports Rash
Neuro: Reports No Symptoms
Endocrine: Reports No Symptoms
Hematologic/Lymphatic: Reports No Symptoms
Allergy / Immunology: Reports No Symptoms
Psych: Reports No Symptoms
Physical Exam
-
General: Well Developed, Well Nourished and Comfortable
HEENT: Moist Mucous Membranes; Negative Jaundice
Cardiology: Normal Sinus Rhythm, S1 and S2
Pulmonary: Clear; Negative Wheezes or Rales
GI: Soft and Normal Bowel Sounds
Genito-Urinary: Deferred by me
Musculoskeletal: No Clubbing, No Cyanosis and No Edema
Extremities: Negative Phlebitic Signs
Neurology: Non Focal
Skin: Rash and No Ecchymosis; Negative Ulcers or Jaundice
Hematologic / Lymphatic: No Lymphadenopathy
Psych: Calm and Intact Judgement/Insight
Labs
Lab Results
WBC 2.1 10^3/uL (4.8-10.8) L* 05/29/24 05:34
RBC 3.95 10^6/uL (4.20-5.40) L 05/29/24 05:34
Hgb 12.0 g/dL (12.0-16.0) 05/29/24 05:34
Hct 35.7 % (37.0-47.0) L 05/29/24 05:34
MCV 90.4 fL (81.0-99.0) 05/29/24 05:34
MCH 30.4 pg (27.0-31.0) 05/29/24 05:34
MCHC 33.6 g/dL (33.0-37.0) 05/29/24 05:34
RDW 13.8 % (11.5-14.5) 05/29/24 05:34
Plt Count 68 10^3/uL (130-400) L 05/29/24 05:34
MPV 12.0 fL (7.4-10.4) H 05/29/24 05:34
Abs Immat Gran (auto) 0.0 10^3/uL (0-0.05) 05/29/24 05:34
Absolute Neuts (auto) 0.4 10^3/uL (1.4-6.5) L* 05/29/24 05:34
Absolute Lymphs (auto) 1.4 10^3/uL (1.2-3.4) 05/29/24 05:34
Absolute Monos (auto) 0.2 10^3/uL (0.1-0.6) 05/29/24 05:34
Absolute Eos (auto) 0.1 10^3/uL (0-0.7) 05/29/24 05:34
Absolute Basos (auto) 0.0 10^3/uL (0-0.2) 05/29/24 05:34
Immature Gran % 0.5 % (0-0.5) 05/29/24 05:34
Neutrophils % 20.2 % (42.2-75.2) L 05/29/24 05:34
Lymphocytes % 65.7 % (20.5-51.1) H 05/29/24 05:34
Monocytes % 8.9 % (1.7-9.3) 05/29/24 05:34
Eosinophils % 4.2 % (0-6) 05/29/24 05:34
Basophils % 0.5 % (0-2) 05/29/24 05:34
Creatinine 0.5 mg/dL (0.6-1.0) L 05/29/24 05:34
Vital Signs
Vital Signs
Temp Pulse Resp BP Pulse Ox
98.3 F 60 16 99/64 98
05/29/24 15:11 05/29/24 15:11 05/29/24 15:11 05/29/24 15:11 05/29/24 15:11
--- NOTE | 2024-05-29 21:23 | W.PN.UPDATE ---
Update Note
Progress Note Update
Patient is refusing PO doxycycline (can not take oral pills) and believes that previous IV antibiotics Rocephin is working better for her condition. She is preferring to speak to ID and morning team to discuss the current plan.
[2024-05-29] MEDS: OFIRMEV 100 IV (21:44)
[2024-05-29 23:34] VITALS: BP 105/70
[2024-05-30] MEDS: NSS IV (02:08)
[2024-05-30 06:45] LABS: INR 1.02; PT 13.7 Sec (11.4-14.6)
[2024-05-30 06:54] LABS: Hematocrit 35.3 % (37.0-47.0); Hemoglobin 11.5 g/dL (12.0-16.0); Mean Corp Hgb Conc. 32.6 g/dL (33.0-37.0); Mean Corpuscular Hgb 30.2 pg (27.0-31.0); Mean Corpuscular Volume 92.7 fL (81.0-99.0); Mean Platelet Volume 12.5 fL (7.4-10.4); Platelet Count 69 10^3/uL (130-400); Red Blood Cell Count 3.81 10^6/uL (4.20-5.40); Red Cell Dist. Width 14.1 % (11.5-14.5)
[2024-05-30 07:10] VITALS: BP 104/62
[2024-05-30 07:23] LABS: ALT (SGPT) 41 U/L (0-35); AST (SGOT) 88 U/L (14-36); Albumin 2.7 g/dl (3.5-5.0); Alkaline Phosphatase 51 U/L (38-126); Blood Urea Nitrogen 2 mg/dl (7-17); Calcium 8.3 mg/dl (8.4-10.2); Carbon Dioxide 26 mmol/L (22-30); Chloride 109 mmol/L (98-107); Estimated Creatinine Clearance 107 ml/min; Glucose 86 mg/dl (70-99); Sodium 138 mmol/L (135-145); Total Bilirubin 0.2 mg/dl (0.2-1.3); Total Protein 4.9 g/dl (6.3-8.2); eGFR > 60.00
[2024-05-30] MEDS: TORADOL 15 MG IV ×3 (07:49→20:11)
[2024-05-30] MEDS: BENADRYL 25 MG IV ×3 (07:55→20:11)
[2024-05-30 09:22] LABS: % Basophils 0.5 % (0-2); % Eosinophils 7.2 % (0-6); % Lymphocytes 62.6 % (20.5-51.1); % Monocytes 5.6 % (1.7-9.3); % Neutrophils 24.1 % (42.2-75.2); Absolute Eosinophils 0.1 10^3/uL (0-0.7); Absolute Lymphocytes 1.2 10^3/uL (1.2-3.4); Absolute Monocytes 0.1 10^3/uL (0.1-0.6); Absolute Neutrophils 0.5 10^3/uL (1.4-6.5); Nucleated Red Blood Cells % 0 %
--- NOTE | 2024-05-30 09:41 | CM ---
Patient lives with spouse and 4 children, plan is to home when stable.
Plan; Home when stable.
--- NOTE | 2024-05-30 10:42 | W.PN.UPDATE ---
Update Note
Progress Note Update
Influenza A detected by PCR. This most likely explains her cytopenias.
Mgmt and supportive care per primary team, monitor CBC daily.
--- NOTE | 2024-05-30 13:07 | W.PN.HOSP.TC ---
Today's Communication/Plan
-
Daily CBC
Await further studies and culture data
ID recs
Assessment / Plan
Assessment / Plan
# Fever and rash likely 2/2 viral exanthem due to influenza A vs. low likelihood of ticborne illness. Doubt due to vasculitis
# Leukopenia/thrombocytopenia likely 2/2 infection likely due to influenza A
-Chest x-ray unremarkable
-Check blood cultures in lab remains negative
-Blood parasite preliminary negative
-Lyme negative
-EBV, Rickettsia serologies, Babesia smear, [place] spotted fever serologies pending
-IV fluids can be discontinued
-Toradol, Benadryl for symptoms
-Significant improvement in rash
-May be out of window for Tamiflu. Monitor platelets closely.
-ID eval
#Severe neutropenia/thrombocytopenia likely secondary to influenza A
-No prior history of neutropenia thrombocytopenia.
-Recent fevers at home. Sick contacts at home
-Complement factors pending. Platelet antibodies pending
-Platelets with mild uptrend
-neutropenic precautions. Monitor CBC daily.
-Appreciate hematology recs
# History of autoimmune vasculitis diagnosed during childhood
-Has not follow-up with rheumatology at [place] and 1 to 2 years
-Not on any maintenance regimen
# URI
-Chest x-ray unremarkable
Asthma
Anxiety/depression/borderline personality disorder
-Continue Valium
History of thalassemia/iron deficiency anemia
Medical marijuana user
History of chronic dysphagia/occasional asphyxia
Chronic gastroparesis
History of vasovagal syncopal episodes
Full code
DVT prophylaxis�SCDs in setting of severe thrombocytopenia
Anticipated Discharge: Within 24 hours
Subjective/Interval History
-
Date of Service: May 30, 2024
Remains afebrile
refused to take po abx
Objective Data
-
Labs:
Laboratory Results
05/30/24
05:47
WBC 2.0 L*
Hgb 11.5 L
Hct 35.3 L
Plt Count 69 L
PT 13.7
INR 1.02
APTT 40.0 H
Sodium 138
Potassium 4.0
Chloride 109 H
Carbon Dioxide 26
BUN 2 L
Creatinine 0.5 L
Glucose 86
Calcium 8.3 L
Total Bilirubin 0.2
AST 88 H
ALT 41 H
Alkaline Phosphatase 51
Vital Signs:
Vital Signs
Temp Pulse Resp BP Pulse Ox
98.6 F 57 17 104/62 96
05/30/24 07:10 05/30/24 07:10 05/30/24 07:10 05/30/24 07:10 05/30/24 08:00
I&O
05/29/24 05/30/24 05/31/24
06:59 06:59 06:59
Intake Total 3060 / 3060 480 / 480
Balance 3060 / 3060 480 / 480
Physical Exam
-
General: Well Developed and No Apparent Distress
HEENT: Normocephalic, Atraumatic, Moist Mucous Membranes and Other (poor dentition)
Respiratory: Clear to Auscultation
Cardiac: Regular Rhythm and S1/S2; Negative Murmur, Rub or Gallop
GI: Soft, Nontender, Nondistended and Normal Bowel Sounds; Negative Organomegaly
Rectal: Deferred by Provider
Musculoskeletal: No Clubbing, No Cyanosis and No Edema
Skin: Rash (Significant improvement in rash on the back extremities and abdomen)
Neuro: Awake, Alert, Oriented, AO x 3, No Motor Deficits and Nonfocal/Grossly Intact
Psych: Calm
[2024-05-30 14:24] LABS: EBV-EA (D) Ab IgG 9.6 U/mL (0.0-10.9); EBV-VCA IgM Antibodies 21.2 U/mL (0.0-43.9)
[2024-05-30 15:11] VITALS: BP 112/76
[2024-05-30 15:41] LABS: HIV Combo Negative (Negative)
--- NOTE | 2024-05-30 16:44 | W.PN.ID1 ---
Date of Service
Date of Service: May 30, 2024
Today's Communication
Discontinue doxycycline. Begin Tamiflu. See below�
Assessment / Plan
Influenza A positive
Fever
Rash
Leukopenia
-Suspect viral related
Gastroparesis
Vasculitis
Fatty liver
Recommendations:
Viral respiratory panel reviewed, and patient is flu a positive.
Remains neutropenic, but has been afebrile.
Will initiate Tamiflu.
No objection to discharge, with outpatient follow-up of CBC in the next several days.
����������������������������������������������������������
Chief Complaint
-: Fever
Subjective / Review of Systems
Review of Systems: No Fever and No Chills
Vital Signs / Physical Exam
Vital Signs
Vital Signs
Temp Pulse Resp BP Pulse Ox
99.1 F 73 17 112/76 97
05/30/24 15:11 05/30/24 15:11 05/30/24 15:11 05/30/24 15:11 05/30/24 15:11
Physical Exam
Constitutional: No Acute Distress, Well Developed, Comfortable and Non-toxic
Head: Normocephalic
Eyes: No Conjunctival Hemorrhage
Pulmonary: Non Labored
Skin: Rash (Decreased)
Neurological: Awake and Alert
Psychological: Calm
Objective Data
Lab Data
Lab Results
05/30/24 05:47
05/30/24 05:47
PT 13.7 Sec (11.4-14.6) 05/30/24 05:47
INR 1.02 05/30/24 05:47
APTT 40.0 Sec (23.4-35.0) H 05/30/24 05:47
Estimated Creat Clear 107 ml/min 05/30/24 05:47
Lactic Acid 0.8 mmol/L (0.7-2.0) 05/28/24 15:56
Total Bilirubin 0.2 mg/dl (0.2-1.3) 05/30/24 05:47
AST 88 U/L (14-36) H 05/30/24 05:47
ALT 41 U/L (0-35) H 05/30/24 05:47
Alkaline Phosphatase 51 U/L (38-126) 05/30/24 05:47
Most recent labs reviewed.
Micro Results:
05/28/24 15:56 Blood Culture - Preliminary
Blood/Venous No Growth in 48 hours- Final report to follow
05/28/24 18:54 Blood Culture - Preliminary
Blood/Venous No Growth in 24 hours- Final report to follow
05/29/24 16:00 Influenza Type A (PCR) - Final
Nasalpharynx DETECTED
Influenza Type A (H1) (PCR) - Final
Not Detected
Influenza Type A (H3) (PCR) - Final
Not Detected
Influenza Type B (PCR) - Final
Not Detected
Resp Syncytial Virus Type A (PCR) - Final
Not Detected
Resp Syncytial Virus Type B (PCR) - Final
Not Detected
Adenovirus DNA (PCR) - Final
Not Detected
Human Metapneumovirus (PCR) - Final
Not Detected
Parainfluenza Virus Type 1 (PCR) - Final
Not Detected
Parainfluenza Virus Type 2 (PCR) - Final
Not Detected
Parainfluenza Virus Type 3 (PCR) - Final
Not Detected
Parainfluenza Virus Type 4 - Final
Not Detected
Rhinovirus (PCR) - Final
Not Detected
05/28/24 18:54 Blood Parasites Smear - Final
Blood/Venous
Care Review
[facility])
[2024-05-30] MEDS: TAMIFLU 75 MG PO (19:51)
[2024-05-30 20:46] LABS: Platelet Antibody, Direct IgG Negative (Negative); Platelet Antibody, Direct IgM Strong Pos (Negative)
[2024-05-30 23:00] VITALS: BP 103/63
[2024-05-31] MEDS: BENADRYL 25 MG IV (03:19)
[2024-05-31] MEDS: TORADOL 15 MG IV (03:19)
[2024-05-31 06:52] LABS: ALT (SGPT) 62 U/L (0-35); AST (SGOT) 112 U/L (14-36); Albumin 2.9 g/dl (3.5-5.0); Alkaline Phosphatase 53 U/L (38-126); Blood Urea Nitrogen 4 mg/dl (7-17); Calcium 8.4 mg/dl (8.4-10.2); Carbon Dioxide 23 mmol/L (22-30); Chloride 109 mmol/L (98-107); Estimated Creatinine Clearance 107 ml/min; Glucose 89 mg/dl (70-99); Sodium 138 mmol/L (135-145); Total Bilirubin 0.6 mg/dl (0.2-1.3); Total Protein 5.1 g/dl (6.3-8.2); eGFR > 60.00
[2024-05-31 07:13] LABS: Hematocrit 32.2 % (37.0-47.0); Hemoglobin 10.9 g/dL (12.0-16.0); Mean Corp Hgb Conc. 33.9 g/dL (33.0-37.0); Mean Corpuscular Hgb 30.4 pg (27.0-31.0); Mean Corpuscular Volume 89.9 fL (81.0-99.0); Red Blood Cell Count 3.58 10^6/uL (4.20-5.40); Red Cell Dist. Width 13.8 % (11.5-14.5)
[2024-05-31 07:31] VITALS: BP 106/69
[2024-05-31 08:13] LABS: Platelet Count 66 10^3/uL (130-400)
[2024-05-31 08:16] LABS: % Basophils 0.7 % (0-2); % Eosinophils 5.6 % (0-6); % Lymphocytes 65.7 % (20.5-51.1); % Monocytes 5.6 % (1.7-9.3); % Neutrophils 22.4 % (42.2-75.2); Absolute Eosinophils 0.2 10^3/uL (0-0.7); Absolute Monocytes 0.2 10^3/uL (0.1-0.6); Absolute Neutrophils 0.7 10^3/uL (1.4-6.5); Nucleated Red Blood Cells % 0 %
--- NOTE | 2024-05-31 08:46 | W.PN.HOSP.TC ---
Addendum entered and electronically signed by Yosef Mayer MD 05/31/24 13:56:
cachetic
Leukopenia and thrombocytopenia only
Original Note:
Today's Communication/Plan
-
Recommend outpatient CBC
Continue with Tamiflu
Assessment / Plan
Assessment / Plan
# Fever and rash likely 2/2 viral exanthem due to influenza A vs. low likelihood of ticborne illness. Doubt due to vasculitis
# Leukopenia/thrombocytopenia likely 2/2 infection likely due to influenza A
-Chest x-ray unremarkable
-Check blood cultures in lab remains negative
-Blood parasite preliminary negative
-Lyme negative
-EBV, Rickettsia serologies, Babesia smear, [place] spotted fever serologies pending
-IV fluids can be discontinued
-Toradol, Benadryl for symptoms
-Significant improvement in rash
-Started on Tamiflu per ID. Completed 5-day course.
-ID eval
#Severe neutropenia/thrombocytopenia likely secondary to influenza A
-No prior history of neutropenia thrombocytopenia.
-Recent fevers at home. Sick contacts at home
-Complement factors pending. Platelet antibodies IgM positive. Discussed with oncologist Dr. Ring, ' patient is at baseline component of immune thrombocytopenia. No need for steroids as platelet above 50,000 and patient not bleeding.'
-Platelets with mild downtrend. But not significant drop.
-Improvement in wbc.
-Appreciate hematology recs
# History of autoimmune vasculitis diagnosed during childhood
-Has not follow-up with rheumatology at [place] and 1 to 2 years
-Not on any maintenance regimen
# URI
-Chest x-ray unremarkable
Asthma
Anxiety/depression/borderline personality disorder
-Continue Valium
History of thalassemia/iron deficiency anemia
Medical marijuana user
History of chronic dysphagia/occasional asphyxia
Chronic gastroparesis
History of vasovagal syncopal episodes
Full code
DVT prophylaxis�SCDs in setting of severe thrombocytopenia
Patient insisting on getting discharged. Recommend to repeat CBC later this week via primary doctor.
More than 30 minutes spent in discharge including
Final examination of the patient
Summarizing hospital stay
Instructions for continuing care to all relevant caregivers
Preparation of discharge records, prescriptions, and referral forms
Total time spent (in minutes): 53
Anticipated Discharge: Today
Subjective/Interval History
-
Date of Service: May 31, 2024
remains afebrile
Objective Data
-
Labs:
Laboratory Results
05/31/24
05:40
WBC 3.0 L
Hgb 10.9 L
Hct 32.2 L
Plt Count 66 L
Sodium 138
Potassium 4.0
Chloride 109 H
Carbon Dioxide 23
BUN 4 L
Creatinine 0.5 L
Glucose 89
Calcium 8.4
Total Bilirubin 0.6
AST 112 H
ALT 62 H
Alkaline Phosphatase 53
Vital Signs:
Vital Signs
Temp Pulse Resp BP Pulse Ox
98.0 F 51 16 106/69 97
05/31/24 07:31 05/31/24 07:31 05/31/24 07:31 05/31/24 07:31 05/31/24 07:31
I&O
05/30/24 05/31/24 06/01/24
06:59 06:59 06:59
Intake Total 3060 / 3060 2640 / 2640
Balance 3060 / 3060 2640 / 2640
Physical Exam
-
HEENT: Moist Mucous Membranes and Other (poor dentition)
Respiratory: Negative Non Labored Respirations or Accessory Resp Muscle Use
GI: Nondistended; Negative Organomegaly
Rectal: Deferred by Provider
Musculoskeletal: No Clubbing, No Cyanosis and No Edema
Skin: Rash (Significant improvement in rash on the back extremities and abdomen)
Neuro: Awake, Alert, Oriented, AO x 3, No Motor Deficits and Nonfocal/Grossly Intact
Psych: Calm
[2024-05-31] MEDS: TAMIFLU 75 MG PO (08:48)
--- NOTE | 2024-05-31 10:05 | W.PN.ID1 ---
Date of Service
Date of Service: May 31, 2024
Today's Communication
Continue Tamiflu.
Assessment / Plan
Influenza A positive
Fever
Rash; resolving
Leukopenia
-Suspect viral related
Gastroparesis
Vasculitis
Fatty liver
Recommendations:
Viral respiratory panel positive for influenza A.
Remains neutropenic, but has been afebrile.
Continue with 5-day course of Tamiflu.
No objection to discharge, with outpatient follow-up of CBC in the next several days.
����������������������������������������������������������
Chief Complaint
-: Fever and Other (Influenza)
Subjective / Review of Systems
Review of Systems: No Fever, No Chills, No Cough and Skin Rash (Essentially resolved.)
Vital Signs / Physical Exam
Vital Signs
Vital Signs
Temp Pulse Resp BP Pulse Ox
98.0 F 51 16 106/69 97
05/31/24 07:31 05/31/24 07:31 05/31/24 07:31 05/31/24 07:31 05/31/24 07:31
Physical Exam
Constitutional: No Acute Distress, Well Developed, Comfortable and Non-toxic
Head: Normocephalic
Eyes: Sclera Anicteric
Pulmonary: Non Labored; Negative Wheezes
Gastrointestinal: Negative Non Distended
Skin: Rash (Decreased)
Neurological: Awake and Alert
Psychological: Calm
Objective Data
Lab Data
Lab Results
05/31/24 05:40
05/31/24 05:40
PT 13.7 Sec (11.4-14.6) 05/30/24 05:47
INR 1.02 05/30/24 05:47
APTT 40.0 Sec (23.4-35.0) H 05/30/24 05:47
Estimated Creat Clear 107 ml/min 05/31/24 05:40
Lactic Acid 0.8 mmol/L (0.7-2.0) 05/28/24 15:56
Total Bilirubin 0.6 mg/dl (0.2-1.3) 05/31/24 05:40
AST 112 U/L (14-36) H 05/31/24 05:40
ALT 62 U/L (0-35) H 05/31/24 05:40
Alkaline Phosphatase 53 U/L (38-126) 05/31/24 05:40
Most recent labs reviewed.
Micro Results:
05/28/24 18:54 Blood Culture - Preliminary
Blood/Venous No Growth in 48 hours- Final report to follow
05/28/24 15:56 Blood Culture - Preliminary
Blood/Venous No Growth in 48 hours- Final report to follow
05/29/24 16:00 Influenza Type A (PCR) - Final
Nasalpharynx DETECTED
Influenza Type A (H1) (PCR) - Final
Not Detected
Influenza Type A (H3) (PCR) - Final
Not Detected
Influenza Type B (PCR) - Final
Not Detected
Resp Syncytial Virus Type A (PCR) - Final
Not Detected
Resp Syncytial Virus Type B (PCR) - Final
Not Detected
Adenovirus DNA (PCR) - Final
Not Detected
Human Metapneumovirus (PCR) - Final
Not Detected
Parainfluenza Virus Type 1 (PCR) - Final
Not Detected
Parainfluenza Virus Type 2 (PCR) - Final
Not Detected
Parainfluenza Virus Type 3 (PCR) - Final
Not Detected
Parainfluenza Virus Type 4 - Final
Not Detected
Rhinovirus (PCR) - Final
Not Detected
05/28/24 18:54 Blood Parasites Smear - Final
Blood/Venous
Imaging:
05/28/2024 CXR (2 view): No radiographic evidence for pneumonia or other acute cardiopulmonary disease. No infiltrates. Please see full dictation for additional detail. Film personally viewed.
--- NOTE | 2024-05-31 11:05 | W.DCSUMMARY ---
Discharge Summary
Discharge Data
Date of Admission: 05/28/24
Date of Discharge: 05/31/24
-
Pending Results: No
Hospital Course
28-year-old female past medical history of supposedly autoimmune vasculitis diagnosed during childhood, asthma, anxiety, depression, borderline personality disorder, history of thalassemia, iron deficiency anemia, medical marijuana user, history of
supposedly chronic dysphagia, chronic gastroparesis, history of vasovagal syncope episode is presenting with abnormal lab value as outpatient. Patient recently was feeling with bodyaches. Patient with multiple cats at home. Patient was found to
have a severe leukopenia and thrombocytopenia. Patient was found to be neutropenic. ID was consulted. Lyme studies was negative. HIV was negative. Patient was found to have influenza A positive. Oncology infectious disease was consulted.
Antibiotics were discontinued. Patient was started on Tamiflu. Patient leukopenia and, cytopenia was likely secondary influenza. Patient had platelet associated antibody which was Discussed with oncologist Dr. Ring, ' patient is at baseline
component of immune thrombocytopenia. No need for steroids as platelet above 50,000 and patient not bleeding.' Patient also had a rash which is significantly improved compared to admission. Rash was secondary to viral exanthem. Patient white
count improved. Patient was tolerating diet. Patient be discharged home on a Tamiflu with recommendation to repeat CBC with primary care doctor.
Discharge Plan
-
Patient Disposition: Home (Routine Discharge)
Discharge Diagnosis/Procedures: Leukopenia and thrombocytopenia secondary to influenza A infection
Rash secondary to influenza A infection
Mild transaminitis secondary to influenza
Condition: Fair
Diet: Regular
Activity: As tolerated
Blood Work: CBC and CMP in3 to 5 days via primary doctor
Referrals:
NONE,* [Family Provider] -
Prescriptions:
New
oseltamivir 75 mg Capsule
75 mg PO BID 4 Days Qty: 8 0RF
Continued
diazepam [Valium] 2 mg Tablet
2 mg PO BIDPRN PRN (Reason: problem eating)
folic acid 1 mg Tablet
1 mg PO DAILY
Medical Marijuana
2 puff inhalation DAILYPRN PRN (Reason: anxiety/stress)
Discharge Orders:
Discharge Patient (As Directed); Ordered 05/31/24
Ordered By: Yosef Mayer
Discharge Date and Time
Discharge Date/Time: 05/31/24 11:24
Print Language: LITHUANIAN
[2024-05-31 11:19] VITALS: BP 97/64
--- NOTE | 2024-05-31 11:29 | PN.CDI ---
CDI
- -
CDI:
Physician Documentation Request
Admit Date: 05/28/24 19:50
Dear Doctor Moreno,
Patient admitted for fever and rash. Found to be flu A positive.
Patient noted to have Leukopenia/thrombocytopenia.
Recent lab work
Laboratory Tests
05/29/24 05/30/24 05/31/24
05:34 05:47 05:40
WBC 2.1 L* 2.0 L* 3.0 L
RBC 3.95 L 3.81 L 3.58 L
Plt Count 68 L 69 L 66 L
Could you provide a diagnosis that supports the above lab abnormalities and additional evaluation/monitoring:
Pancytopenia
leukopenia and thrombocytopenia only
Other
Use of terms such as suspected, likely, concern for, or probable (associated with a specific diagnosis that is being evaluated, monitored, or treated as if it exists) are acceptable and can be coded in the inpatient setting, when documented at the
time of discharge.
Thank you,
Beata Mishra RN, BSN
CDI Specialist
tiger text
Please use your independent medical judgment in providing your response.
--- NOTE | 2024-05-31 11:34 | PN.CDI ---
CDI
- -
CDI:
Physician Documentation Request
Admit Date: 05/28/24 19:50
Dear Doctor Moreno,
Please review the following and provide your response in the progress notes.
Clinical Indicators:
Height: 5 ft 4 inches
Weight:108 lbs, 4.8 ox
BMI:18.6
Please provide an associated diagnosis related to the abnormal BMI, such as:
BMI < or = to 19
Underweight
Weight Loss
Cachectic
Anorexia
- BMI is not significant
- Other
Use of terms such as suspected, likely, concern for, or probable (associated with a specific diagnosis that is being evaluated, monitored, or treated as if it exists) are acceptable and can be coded in the inpatient setting, when documented at the
time of discharge.
Thank you,
Beata Mishra RN, BSN
CDI Specialist
tiger text
Please use your independent medical judgment in providing your response.
[2024-06-01 00:09] LABS: Complement Act., Total (CH50) 84.6 U/mL (38.7-89.9)
[2024-06-01 12:35] LABS: RMSF IgG Antibodies <1:64 (<1:64); RMSF IgM Antibodies <1:64 (<1:64)
== END 2024-05-31 11:24 | disposition home or self-care (01) | DRG 866 ==
LOC: 3 WEST ACU 19:50
PROVIDERS: Nurse Practitioner; Physician Assistant Medical; ADMITTING PHYSICIAN Hospitalist; ATTENDING PHYSICIAN Hospitalist; CONSULT PHYSICIAN Internal Medicine Hematology & Oncology; EMERGENCY PHYSICIAN Emergency Medicine; OTHER PHYSICIAN Internal Medicine Infectious Disease
DX: J10.89 Influenza due to other identified influenza virus with other manifestations (principal); R64 Cachexia; Z68.1 Body mass index [BMI] 19.9 or less, adult; F60.3 Borderline personality disorder; F32.A Depression, unspecified; F41.9 Anxiety disorder, unspecified; F17.200 Nicotine dependence, unspecified, uncomplicated; D56.9 Thalassemia, unspecified; D69.59 Other secondary thrombocytopenia; D70.9 Neutropenia, unspecified; J45.909 Unspecified asthma, uncomplicated; K31.84 Gastroparesis; K76.0 Fatty (change of) liver, not elsewhere classified; I77.6 Arteritis, unspecified; R13.19 Other dysphagia; Z79.899 Other long term (current) drug therapy; R21 Rash and other nonspecific skin eruption; D70.3 Neutropenia due to infection; R50.81 Fever presenting with conditions classified elsewhere
CPT/HCPCS: 71046; 80053; 83605; 85025; 85610; 85730; 86023; 86160; 86162; 86618; 86663; 86664; 86665; 86757; 86850; 86870; 86900; 86901; 87015; 87040; 87207; 87389; 87633; 96374; 99285

== ENCOUNTER 2024-09-13 16:15 | Emergency (ER) | payer OTHER, SELFPAY ==
[2024-09-13 16:32] VITALS: BP 113/78
[2024-09-13 19:29] VITALS: BP 105/71
[2024-09-13 19:30] VITALS: BMI 19.2
--- NOTE | 2024-09-13 19:30 | ED.GENMED ---
History of Present Illness
General
Chief Complaint: Abdominal Pain
Time Seen by Provider: 09/13/24 19:27
History of Present Illness
History of Present Illness:
REVIEW OF OLD RECORDS
The patient has a history of 'supposedly autoimmune vasculitis diagnosed during childhood', asthma, anxiety, depression and borderline personality disorder who was admitted here for a few days 3 months ago with myalgias and was neutropenic and
thrombocytopenic. At that time ID was consulted, Lyme was negative, HIV was negative, influenza A was positive and was placed on Tamiflu.
Note:
CHIEF COMPLAINT(S)
Difficulty swallowing, body pain, and throat swelling.
HISTORY OF PRESENT ILLNESS
The patient is a 28-year-old female with a history of autoimmune conditions including a noted nutrition disorder, who presents to the emergency department with a new onset of throat swelling, body pain, and inability to swallow since this morning.
The patient reports 'my body hurt, my throat was swollen, I cant swallow' and was unable to consume coffee this morning due to the discomfort.
The patient has previously been admitted for low white blood cell count and low platelet count, and currently experiences an urticarial rash described as small red dots, notably on the wrists. The patient has a history of autoimmune issues needing
urgent care visits before hospital admissions due to the severity of their condition. The ongoing abdominal pain and cramping, described as excruciating, are linked to the patients gastroparesis, with guarding noted on physical exam. The patient
mentioned having 'chronic stomach pain' and 'cramps,' identifying these as normal due to her condition but acknowledges they cause significant discomfort.
Recent laboratory results from urgent care showed a white blood cell count of 5.1 and platelet count of 204, with normal hemoglobin levels. Rapid tests for mononucleosis, streptococcus, influenza, and COVID-19 were negative. The patient expresses
concerns about abdominal pain potentially linked to pancreatic issues.
PHYSICAL EXAM
- Head and Neck: Throat appears red but not significantly swollen. Tenderness noted in the front part of the neck.
- Abdomen: Mild tenderness, more pronounced on the right side with no guarding noted.
- Skin: Presence of urticarial rash on the body, notably the back and wrists.
- General: Well appearing in no distress
- HEENT: Moist oral mucosa
- Cardiovascular: No murmurs, normal heart rate, regular rhythm, No chest wall tenderness
- Pulmonary: No respiratory distress, breath sounds are clear and equal
- Abdomen: Soft with no peritoneal signs, no tenderness
- Neurologic: Excellent strength all extremities, no coordination deficits
- Psychiatric: Appropriate mental status, normal insight and judgement, she does seem to perseverate over chronic unexplained issues
- Extremities: Nontender, no edema, moves all extremities equally
- Skin: No rash, no lesions
PROBLEM LIST
- Acute problems: Difficulty swallowing, throat swelling, body pain, urticarial rash, abdominal pain with cramping.
- Chronic problems: Autoimmune nutrition disorder, gastroparesis.
PLAN
- Administer Toradol for pain management.
- Administer steroid medication to reduce swelling and address potential inflammation.
- Conduct a computed tomography scan of the abdomen, without oral contrast (patient refused), to assess abdominal concerns.
- Administer intravenous fluids to support hydration and symptom relief.
- Proceed with laboratory studies, including vitamin B12 and D levels, despite recent tests.
DIFFERENTIAL DIAGNOSIS
The Differential Diagnosis includes, in no particular order and is not limited to:
1. Autoimmune vasculitis
2. Angioedema
3. Viral pharyngitis
4. Bacterial pharyngitis
5. Anaphylactic reaction
6. Medication-induced esophagitis
7. Acute pancreatitis
8. Gastroparesis flare-up
9. Eosinophilic esophagitis
10. Connective tissue disorder
LABS
Hemoglobin is near baseline, white count is normal, C-reactive protein is less than 5, chemistries unremarkable, negative
CT imaging shows no acute abnormality
CARE-UPDATE
09/13/24 - 22:23
Radiological report from the CAT scan shows no identifiable cause for the patients pain. Blood work reveals hemoglobin levels consistently within the range of 9 to 11, which is low but within the patients historical baseline. C-reactive protein
levels are under 5, indicating no significant acute inflammation. The patients rash, characterized by circular dots, persists with normal platelet counts and no other typical signs of an inflammatory process like vasculitis.
Considering the autoimmune background and prior ineffective treatment with steroids, they will be prescribed again for temporary relief. The patient expresses discomfort with persistent nausea, but currently manages symptoms with their existing
prescription. No significant lab abnormalities or acute findings warrant hospital admission. The patient is advised to follow up with their primary certified nurse aide and coordinate with other specialists for comprehensive autoimmune management.
Prescription for steroids will be provided as discussed.
No clear indication for admission to the hospital. The patient did indicate that she was upset without the diagnosis however this does seem to be a chronic issue for her. She is to follow-up with her career coordinator and certified nurse aide.
Past History
Past History
ED Past Medical History: Asthma, Psychiatric (depression, anxiety, ODD, bipolar, OCD) and Other (Chronic headaches, vasculitis, Auto Immune disease, anemia)
ED Past Surgical History: Gynecological (, D&C)
Social History
Tobacco: Smoker
Alcohol: None
Drug: None and Marijuana
Personal: Single
Living: other (States she lives with 'someone.')
Employment: Employed
Family History
Family History: Other (Noncontributory)
Phy Exam
Physical Exam
Physical Exam:
See HPI
Course
Orders/Labs/Results
Orders:
Orders
09/13/24 19:42
CT Abd/pelvis W Iv Cont Urgent
Comment:
Reason For Exam: worsening abd pain diffuse; refuses oral contrast
0.9% Sodium Chloride 1000 ml [Nss] 1,000 ml IV BOLUS
Famotidine [Pepcid] 20 mg IV NOW STA
Ketorolac [Toradol] 15 mg IV NOW STA
MethylPREDNISolone PF [Solu-Medrol Pf] 125 mg IV NOW STA
Ondansetron Injectable [Zofran] 4 mg IV NOW STA
Test Result ONCE
09/13/24 20:34
CRP [C-Reactive Protein] Urgent
Complete Blood Count/With Diff Urgent
Comprehensive Metabolic Panel Urgent
ESR [Erythrocyte Sed Rate] Urgent
HCG, Serum Qualitative Screen Urgent
09/13/24 22:02
Ketorolac [Toradol] 15 mg IV NOW STA
Abnormal Lab Results
09/13/24
20:34
RBC 3.78 L 10^6/uL
(4.20-5.40)
Hgb 11.0 L g/dL
(12.0-16.0)
Hct 31.8 L %
(37.0-47.0)
RDW 16.1 H %
(11.5-14.5)
MPV 10.6 H fL
(7.4-10.4)
Absolute Monos (auto) 0.7 H 10^3/uL
(0.1-0.6)
Monocytes % 10.1 H %
(1.7-9.3)
Chloride 113 H mmol/L
(98-107)
BUN < 2 L mg/dl
(7-17)
Creatinine 0.5 L mg/dL
(0.6-1.0)
Total Protein 5.7 L g/dl
(6.3-8.2)
Albumin 3.3 L g/dl
(3.5-5.0)
09/13/24 20:34
09/13/24 20:34
Vital Signs
Initial and Last Documented VS:
Initial Vital Signs
Temp Pulse Resp BP Pulse Ox
37.2 C 102 16 113/78 98
09/13/24 16:32 09/13/24 16:32 09/13/24 16:32 09/13/24 16:32 09/13/24 16:32
Last Documented Vital Signs
Temp Pulse Resp BP Pulse Ox
37.2 C 60 16 90/62 99
09/13/24 16:32 09/13/24 20:45 09/13/24 20:45 09/13/24 20:00 09/13/24 20:45
*Pulse Oximetry
Patient hypoxic: no
Comment: 98% RA
*Critical Care Note
Total Time (30-74mins, 75-104mins- exclusive of procedures): Not Applicable
ED Attending Note
-
Portions of this chart may have been created with voice recognition software.� Occasional wrong word or��sound alike� substitutions may have occurred due to the inherent limitations of voice recognition software.
Discharge Plan
Departure
Prescriptions:
No Action
diazepam [Valium] 2 mg Tablet
2 mg PO BIDPRN PRN (Reason: problem eating)
folic acid 1 mg Tablet
1 mg PO DAILY
Medical Marijuana
2 puff inhalation DAILYPRN PRN (Reason: anxiety/stress)
oseltamivir 75 mg Capsule
75 mg PO BID 4 Days Qty: 8 0RF
Referrals:
NONE,* [Family Provider, Internal Medicine]
Interventions
Interventions:
*General Assessment Last Done: 09/13/24 19:30
*Neglect/Abuse Screening Last Done: 09/13/24 19:30
*ED- Fall Risk Assessment Last Done: 09/13/24 19:30
*ED COVID-19 Vaccine History Last Done: 09/13/24 19:30
AG-Iaqcxe-Wmkbfmhaom Assessment Last Done: 09/13/24 19:30
Discharge Date and Time
Print Language: GUINEAN
[2024-09-13 20:00] VITALS: BP 90/62
[2024-09-13] MEDS: NSS 1000 IV (20:15)
[2024-09-13] MEDS: ZOFRAN 4 MG IV (20:20)
[2024-09-13] MEDS: TORADOL 15 MG IV ×2 (20:21→22:10)
[2024-09-13] MEDS: SOLU-MEDROL PF 125 MG IV (20:21)
[2024-09-13] MEDS: PEPCID 20 MG IV (20:21)
[2024-09-13 20:46] LABS: % Basophils 0.9 % (0-2); % Eosinophils 3.3 % (0-6); % Immature Granulocytes 0.1 % (0-0.5); % Lymphocytes 42.1 % (20.5-51.1); % Monocytes 10.1 % (1.7-9.3); % Neutrophils 43.5 % (42.2-75.2); Absolute Basophils 0.1 10^3/uL (0-0.2); Absolute Eosinophils 0.2 10^3/uL (0-0.7); Absolute Lymphocytes 2.8 10^3/uL (1.2-3.4); Absolute Monocytes 0.7 10^3/uL (0.1-0.6); Absolute Neutrophils 2.9 10^3/uL (1.4-6.5); Hematocrit 31.8 % (37.0-47.0); Mean Corp Hgb Conc. 34.6 g/dL (33.0-37.0); Mean Corpuscular Hgb 29.1 pg (27.0-31.0); Mean Corpuscular Volume 84.1 fL (81.0-99.0); Mean Platelet Volume 10.6 fL (7.4-10.4); Nucleated Red Blood Cells % 0 %; Platelet Count 168 10^3/uL (130-400); Red Blood Cell Count 3.78 10^6/uL (4.20-5.40); Red Cell Dist. Width 16.1 % (11.5-14.5); White Blood Cell Count 6.7 10^3/uL (4.8-10.8)
[2024-09-13 20:57] LABS: HCG, Serum Qualitative Screen Negative
[2024-09-13 21:02] VITALS: BP 111/77
[2024-09-13 21:04] LABS: C-Reactive Protein < 5.00 mg/L (0.0-10.00)
[2024-09-13 21:06] LABS: Erythrocyte Sed Rate 1 mm/hour (0-20)
[2024-09-13 21:09] LABS: ALT (SGPT) 13 U/L (0-35); AST (SGOT) 16 U/L (14-36); Albumin 3.3 g/dl (3.5-5.0); Alkaline Phosphatase 58 U/L (38-126); Blood Urea Nitrogen < 2 mg/dl (7-17); Calcium 8.7 mg/dl (8.4-10.2); Carbon Dioxide 22 mmol/L (22-30); Chloride 113 mmol/L (98-107); Estimated Creatinine Clearance 107 ml/min; Glucose 89 mg/dl (70-99); Potassium 3.7 mmol/L (3.5-5.1); Sodium 137 mmol/L (135-145); Total Bilirubin 0.4 mg/dl (0.2-1.3); Total Protein 5.7 g/dl (6.3-8.2); eGFR > 60.00
[2024-09-13 22:03] VITALS: BP 103/67
== END 2024-09-13 22:41 | disposition home or self-care (01) ==
LOC: EMR 16:15
PROVIDERS: EMERGENCY PHYSICIAN Emergency Medicine
DX: R10.9 Unspecified abdominal pain (principal); M79.10 Myalgia, unspecified site; J45.909 Unspecified asthma, uncomplicated; F41.9 Anxiety disorder, unspecified; F42.9 Obsessive-compulsive disorder, unspecified; F60.3 Borderline personality disorder; K31.84 Gastroparesis; R13.10 Dysphagia, unspecified; F17.200 Nicotine dependence, unspecified, uncomplicated
CPT/HCPCS: 99284; 96374; 96375; 96376; 96361; 74177; 80053; 84703; 85025; 85652; 86140; Q9967